=== PATIENT | female | born 1980 | race Caucasian/White ===

== ENCOUNTER 2017-01-27 05:41 | Day surgery (SDC) | payer SELFPAY ==
[2017-01-09 11:33] LABS: HEMOGLOBIN 14.9 g/dL (12.0-15.5); HGB HCT DIFFERENCE 1.7; MEAN CORPUSCULAR HGB CONC 34.6 g/dL (32.0-36.0); MEAN CORPUSCULAR VOLUME 104 fl (80-97); RED BLOOD COUNT 4.13 10^6/uL (3.72-5.28); RED CELL DISTRIBUTION WIDTH 11.9 % (11.5-14.0); WHITE BLOOD COUNT 7.9 10^3/uL (4.0-10.5)
[2017-01-09 11:47] LABS: PROTHROMBIN TIME 12.5 SEC (11.4-15.4)
[2017-01-09 11:48] LABS: COSMETIC PTT 27.3 SEC (23.5-35.8)
[2017-01-09 11:50] LABS: APPEARANCE,URINE CLOUDY; BILIRUBIN,URINE NEGATIVE (NEGATIVE); GLUCOSE, URINE NEGATIVE (NEGATIVE); KETONES,URINE NEGATIVE (NEGATIVE); LEUKOCYTE ESTERASE,URINE MODERATE (NEGATIVE); NITRITE,URINE POSITIVE (NEGATIVE); PROTEIN,URINE NEGATIVE (NEGATIVE); URINE SPECIFIC GRAVITY 1.024; UROBILINOGEN,URINE NEGATIVE mg/dL (<2.0)
[2017-01-09 12:41] LABS: COSMETIC HCG NEGATIVE (NEGATIVE)
[2017-01-09 12:48] LABS: ANION GAP 13 (5-19); BLOOD UREA NITROGEN 18 mg/dL (7-20); CALCIUM 10.1 mg/dL (8.4-10.2); CARBON DIOXIDE 28 mmol/L (22-30); CHLORIDE 101 mmol/L (98-107); CREATININE RESULT 0.68 mg/dL (0.52-1.25); POTASSIUM 4.4 mmol/L (3.6-5.0); SODIUM 141.8 mmol/L (137-145)
[2017-01-09 12:49] LABS: GLUCOSE 96 mg/dL (75-110)
--- NOTE | 2017-01-09 19:37 | EKG REPORT ---
SEVERITY:- NORMAL ECG - SINUS RHYTHM : Confirmed by: Jami Farris 09-Jan-2017 19:36:04
[~2017-01-27 05:41] MED LIST: CEFAZOLIN 1 GM/D5W RTU 1 GM/50 ML RTUPB IV PRN; LACTATED RINGERS 1000 ML IV PRN; LIDOCAINE 0.5% INJ-PF (5 MG/ML) 50 ML SDV SUBCUT PRN
[2017-01-27 06:24] LABS: ANION GAP 12 (5-19); BLOOD UREA NITROGEN 14 mg/dL (7-20); CALCIUM 9.3 mg/dL (8.4-10.2); CARBON DIOXIDE 21 mmol/L (22-30); CHLORIDE 103 mmol/L (98-107); CREATININE RESULT 0.65 mg/dL (0.52-1.25); GLUCOSE 104 mg/dL (75-110); POTASSIUM 3.9 mmol/L (3.6-5.0); SODIUM 135.9 mmol/L (137-145)
[2017-01-27] MEDS ORDERED: LIDOCAINE 1% INJ-PF (10 MG/ML) 30 ML SDV ONE (06:39)
[2017-01-27] MEDS ORDERED: SODIUM BICARBONATE 8.4% INJ 50 MEQ/50 ML DISP.SYRIN ONE (06:40)
[2017-01-27] MEDS ORDERED: GENTAMICIN SULFATE INJ 80 MG/2 ML VIAL ONE (06:40)
[2017-01-27] MEDS ORDERED: LIDOCAINE 0.5%/EPINEPHRINE INJ 50 ML VIAL ONE (06:40)
[2017-01-27] MEDS ORDERED: CEFAZOLIN INJ 1 GM VIAL ONE ×2 (06:40→11:28)
[2017-01-27] MEDS ORDERED: ALBUTEROL SULFATE 0.083% NEB 2.5 MG/3 ML AMPUL NEB ONE (07:00)
[2017-01-27] MEDS ORDERED: IBUPROFEN INJ 800 MG/8 ML VIAL IV ONE (07:10)
[2017-01-27] MEDS ORDERED: ACETAMINOPHEN 100 ML IV ONE (07:10)
[2017-01-27] MEDS ORDERED: HYDROMORPHONE HCL INJ/PF 2 MG/ML AMPULE ONE (07:10)
[2017-01-27] MEDS ORDERED: FENTANYL CITRATE INJ/PF 250 MCG/5 ML AMPULE ONE (07:10)
[2017-01-27] MEDS ORDERED: PROPOFOL INJ 200 MG/20 ML VIAL IV ONE ×2 (07:10→07:31)
[2017-01-27] MEDS ORDERED: DIPHENHYDRAMINE HCL 50 MG/ML VIAL ONE (07:31)
[2017-01-27] MEDS ORDERED: MIDAZOLAM 2 MG/2 ML INJ ONE (07:31)
[2017-01-27] MEDS ORDERED: SCOPOLAMINE HYDROBROMIDE 1.5 MG PATCH.TD72 ONE (07:47)
[2017-01-27] MEDS ORDERED: BACITRACIN INJ 50,000 UNIT VIAL ONE (07:47)
[2017-01-27] MEDS ORDERED: MEPERIDINE HCL/PF INJ 25 MG/1 ML DISP.SYRIN IV PRN (08:50)
[2017-01-27] MEDS ORDERED: DIPHENHYDRAMINE HCL 50 MG/ML VIAL IV PRN (08:50)
[2017-01-27] MEDS ORDERED: PROMETHAZINE HCL INJ 25 MG/1 ML VIAL IV PRN ×2 (08:50)
[2017-01-27] MEDS ORDERED: FENTANYL CITRATE INJ/PF 100 MCG/2 ML AMPUL IV PRN ×3 (08:50)
[2017-01-27] MEDS ORDERED: MORPHINE SULFATE 10 MG/ML INJ IV PRN (08:50)
[2017-01-27] MEDS ORDERED: NEOSTIGMINE METHYLSULFATE 10 MG/10 ML VIAL ONE (12:55)
[2017-01-27] MEDS ORDERED: VECURONIUM BROMIDE INJ 10 MG VIAL IV ONE ×2 (12:55→12:57)
[2017-01-27] MEDS ORDERED: METOCLOPRAMIDE HCL INJ/PF 10 MG/2 ML SDV ONE (12:55)
[2017-01-27] MEDS ORDERED: DEXAMETHASONE SOD PHOSPHATE INJ 4 MG/1 ML VIAL ONE (12:55)
[2017-01-27] MEDS ORDERED: SUCCINYLCHOLINE CHLORIDE INJ 200 MG/10 ML VIAL ONE (12:55)
[2017-01-27] MEDS ORDERED: GLYCOPYRROLATE INJ 0.4 MG/2 ML VIAL ONE (12:55)
[2017-01-27] MEDS ORDERED: ONDANSETRON HCL INJ/PF 4 MG/2 ML SDV ONE (12:55)
[2017-01-27] MEDS ORDERED: LIDOCAINE 2% INJ-PF (20 MG/ML) 10 ML AMPUL ONE (12:55)
[2017-01-27] MEDS ORDERED: PHENYLEPHRINE HCL INJ/PF 10 MG/1 ML SDV ONE (12:57)
[2017-01-27] MEDS ORDERED: OXYCODONE-ACETAMINOPHEN 5-325 MG TABLET PO PRN ×4 (13:24→13:25)
[2017-01-27] MEDS ORDERED: MORPHINE SULFATE 10 MG/ML INJ IM PRN ×3 (13:26→13:27)
[2017-01-27] MEDS ORDERED: PROMETHAZINE HCL 25 MG SUPP.RECT PR PRN (13:31)
--- NOTE | 2017-01-27 13:53 | DISCHARGE SUMMARY E ---
Discharge Summary NAME: RONALD FRITZ : 1980 AGE: 36Y ADMITTED: 01/27/2017 DISCHARGED: 01/27/2017 DISCHARGE DIAGNOSIS: BILATERAL HYPOMASTIA. PROCEDURE: Bilateral augmentation mammoplasty using [place] 1600 round smooth saline implants placed subpectorally underneath the pectoralis major muscle. We placed bilaterally 300 mL implants, and filled bilaterally to 325 mL. PATIENT'S HOSPITAL COURSE: Patient admitted to the hospital; had above named procedure. Was discharged home in stable condition to keep the head elevated, limit activities, watch for any signs of infection. Any problems, to contact me. Resume any medicines that she had stopped, and take her antibiotics until approximately 1 week. If there are any problems or concerns, she is to contact us. She understands our directive. She is to do ambulation in order to minimize the risk of DVT, to work on deep breathing in order to minimize the chance of any pneumonia, and I will see her back in the office on . DICTATING PHYSICIAN: NU MILLS JR., M.D. [id number] Y#: [id number] ID: [id number] JOB#: [id number] ACCT: [id number] cc:NU MILLS JR., M.D. >
[2017-01-27] MEDS ORDERED: OXYCODONE-ACETAMINOPHEN 5-325 MG TABLET ONE (13:59)
[2017-01-27 14:59] VITALS: BP 126/87
--- NOTE | 2017-01-27 15:08 | OPERATIVE REPORT E ---
Operative Report NAME: RONALD FRITZ : 1980 AGE: 36Y DATE OF SURGERY: ROOM: PREOPERATIVE DIAGNOSIS: Bilateral hypomastia. POSTOPERATIVE DIAGNOSIS: Bilateral hypomastia. OPERATION: Bilateral augmentation mammoplasty using [place] 1600 Round Smooth saline implants placed subpectorally underneath the pectoralis major muscle. We used a 300 mL implant on the right side filled to 325, and on the left side we used a 300 mL implant filled to 325, so both sides 300 mL implants; total fill volume was the same, 325 mL. SURGEON: NU MILLS JR., M.D. COMPLICATIONS: None. ESTIMATED BLOOD LOSS: Minimal. PROCEDURE AND FINDINGS IN DETAIL: The night before, the patient was marked. In the morning the patient was brought into the operating room, and the vernon were confirmed. The patient already had a warming blanket and the BEE hose and compression boots in place working prior to being brought into the operating room. Once she was in the operating room she was placed under general anesthesia. The vernon were re-darkened. She had a Nesbitt catheter placed and an orogastric tube placed. She was then prepped with a Betadine scrub and a Betadine solution, and draped in a sterile aseptic manner. A time-out was performed, and then the procedure was ready to be performed. We started with the right side. This was anesthetized with 0.5% lidocaine with epinephrine. After we anesthetized the incision and along the inframammary crease area, we then went ahead and made the incision. The incision was then carried down into the subcutaneous tissue and down trying to stay out of the breast tissue as much as possible. We dissected in a deep and superior direction in order to find the pectoralis major fascia. Throughout the case the bipolar was used near the skin. The needle-tip Bovie was used in the subcutaneous tissues, and the blade was used for the dissection and for the deep dissection the long blade was used. A 25 was used for the Bovie energy near the skin and 35 for the dissection. So, once we dissected down and we encountered the pectoralis fascia, we then went ahead and opened up the pectoralis fascia and performed a myotomy in the pectoralis major muscle. We then dissected this using traction, counter-traction, laterally so that we could completely release the lateral margin. After this we then dissected in a superior direction using finger dissection, as well as retractor dissection, in order to begin developing the pocket. Once we had the beginning part of the pocket develop. In order to facilitate the rest of the dissection, we then went ahead and did the inframammary crease release of the pectoralis major muscle. We did this in a diagonal type of fashion, taking it up in a diagonal fashion medially to about the level of the lower nipple-areolar complex level. After we freed this up with the Bovie to separate the pectoralis muscle and break in the continuity of this muscle so this would not force the implant out in a lateral position, we then continued the rest of our dissection superiorly. The Bovie was used with the long tip throughout the dissection. We then dissected medially, freeing this up medially, and we dissected laterally freeing this up laterally. The pectoralis minor muscle throughout the dissection of the cavity was left intact along its attachment, and we the pectoralis major from the pectoralis minor muscle. After we dissected this 360 degrees up near the upper lateral area, we used a hockey-stick dissector and dissected the superior-most aspect with a gentle push technique in order to separate the rest of the tissue to give us an adequate pocket. Along the inferior aspect of the inframammary crease laterally we dissected with the Bovie so that could create a nice lateral rounded pocket. After we completed this we went ahead and checked to make sure that the pocket was good. I used a Betadine-nipped finger for the rest of the dissection to make sure the pocket was adequate. We then irrigated with triple antibiotic solution using bacitracin, gentamicin, and cephalexin. After we thoroughly irrigated, we explored for bleeders to make sure there were no signs of any bleeders, and we put the philanthropy officer in. We placed a 275 sizer and placed it into the pocket. We then serially filled it up to 300, and it appeared this was adequate for her, and when we placed it up to 325, it appeared that she could easily accommodate that also. We then continued filling this, and over-filled it up to 420 in order to help expand the pocket while we turned our attention to the left side. On the left side we performed a similar dissection as we did on the right side. On the left side we went ahead, after anesthetizing the area with 0.5% lidocaine with epinephrine, and made the incision, carried this down with a needle tip at 25, down towards the pectoralis fascia, switched to the blade tip with the Bovie at 35, and continued our dissection. We opened up the pectoralis fascia and then created a myotomy in the pectoralis major muscle, dissected this laterally in order to free up the lateral margin of the pectoralis muscle, and then we went ahead and dissected superiorly using digital manipulation with a Betadine lubricant for creating the pocket. After we created some of the superior portion of the pocket, we continued our dissection to free up the pectoralis major muscle from the incision along the inframammary crease in a tangential pivot direction up to the lower edge of the nipple-areolar complex level. We took this medially to separate this so it would take pressure off of the implant and keep it from being forced into a more lateral position over time. Once we freed up the muscle we then went ahead and continued the superior dissection, and then went ahead and finished the medial dissection, and then the lateral dissection, freeing up the pocket so that there was a good space for the implant without any kind of restrictions. Along the inframammary crease laterally we also used the Bovie and freed up along the crease and along the lateral aspect in the subcutaneous tissue so there would be adequate contour to the lateral implant. We also went ahead and dissected the pectoralis minor from the pectoralis major muscle. This was dissected very carefully in order to separate the 2 muscles. We used a hockey-stick for the superior dissection along the pectoralis major minor area up laterally and superiorly. We used the hockey-stick to help create the pocket. Once we had an adequate pocket we irrigated with a triple antibiotic, gentamicin, cephalexin, and bacitracin solution, removed the sizer from the right side, placed it into the left side, and over-inflated it to about 480 mL. We then turned our attention to the right side. We irrigated with a triple antibiotic solution and then explored for any bleeding, made sure there was good hemostasis throughout the area, and then we went ahead and placed our 3-0 Vicryl sutures, placing them into the breast fascia. The end ones were clamped together, the 2 center ones were clamped individually. After we placed these, these were placed in such a fashion that the notch would be in the subcutaneous tissue not in the breast pocket. After we placed these, we then went ahead to the left side, removed the sizer, and then we irrigated the pocket with a triple antibiotic solution, again confirming that there were no signs of any active bleeding. There was a good shape and contour to the pocket. We went ahead and placed our 3-0 Vicryl sutures in the breast fascia, the 2 ends being clamped together, the 2 center ones clamped individually. We then went ahead and used separate gloves and opened up the implants. We decided to go with 300 mL implants, [place] Smooth Round 1600 smooth round implants, and 300 was the sizer we were going to use on the left and the right side. After we opened up the implant, we tested under triple antibiotic solution, made sure there were no leaks. We then placed the fill tube and evacuated the air, filled it up with 60 mL of saline from the closed system. We then filled the implant with 60 mL, tested it for leaks, made sure there were no leaks, evacuated the saline, rolled it up into a cigar shape, soaked it in antibiotic solution, placed it into the pocket on the right side. A similar procedure was performed on the left side. Once both implants were in place and each were filled, we filled each one to 325. This appeared to be the best for the patient and gave her good symmetry. We sat her up, confirmed the positioning, made sure everything was good. We laid her back down, removed the fill plugs, put the plugs for the implant in place, again put the plugs for the implant in place after the fill plugs were removed, and then we went ahead and tied the 3-0 Vicryl sutures. After we tied these, we then went ahead and irrigated the rest of the subcutaneous tissue, placed 4-0 Vicryl for the subcutaneous deep dermis, and a subcuticular 4-0 PDS with knots being tied on the outside. At the end of the case we applied Dermabond. We applied 4 x 4s and paper tape to support the inframammary crease. ABD pad was folded in 3 sections, placed laterally in order to give her medial cleavage, and a surgical bra was placed. She was then reversed from anesthesia and taken to the [facility] for recovery. She tolerated this well. There were no complications. DICTATING PHYSICIAN: NU MILLS JR., M.[place]. [id number] PHY#: [id number] ID: [id number] JOB#: [id number] ACCT: [id number] cc:NU MILLS JR., M.D. > MTDD
[2017-01-27] MEDS ORDERED: CEPHALEXIN 500 MG CAPSULE PO SCH (22:00)
== END 2017-01-27 15:15 | disposition home or self-care (01) ==
LOC: OROUT 05:41
PROVIDERS: ATTEND Plastic Surgery
PROC: 0H0V0JZ Alteration of Bilateral Breast with Synthetic Substitute, Open Approach (ICD-10-PCS; principal; 2017-01-27 08:00)
DX: N64.82 Hypoplasia of breast (principal); I10 Essential (primary) hypertension; F17.210 Nicotine dependence, cigarettes, uncomplicated; Z79.899 Other long term (current) drug therapy; Z79.891 Long term (current) use of opiate analgesic
CPT/HCPCS: 93005; 36415 ×2; 81025; 80048 ×2; 85027; 85610; 85730; 81000; 84703; 93010; 19325; L8000; J2250; J3490 ×4; J0690 ×2; J1100; J1200; J3010; J1580; J2765; J1170; J2370; J0330; J2405; J2704; J0131; J1741; 402